=== PATIENT | male | born 2000 | race Caucasian/White ===

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

== ENCOUNTER 2021-07-16 10:44 | Emergency (ER) | payer OTHER, SELFPAY ==
[~2021-07-16] VITALS: Ht 182.9 cm; Wt 67.5 kg
[~2021-07-16 10:44] MED LIST changes: -ATOM40CA; +ATOM40CA16; +CLON-412 PO; -ESCI20TA; +ESCI20TA16
[2021-07-16] MEDS ORDERED: KETOROLAC 30 MG/ML 1ML VIAL IV ONE (12:25)
[2021-07-16 12:47] LABS: BASO % 0.3 % (0.0-1.0); EOS # 0.1 10^3/uL (0.0-0.5); EOS % 0.5 % (0.0-3.0); HEMATOCRIT 44.5 % (42.0-52.0); LYMPH # 1.4 10^3/uL (1.5-5.0); MEAN CORPUSCULAR HEMOGLOBIN 30.3 pg (27.0-33.0); MEAN CORPUSCULAR HGB CONC 33.7 g/dl (32.0-36.5); MEAN CORPUSCULAR VOLUME 89.9 fl (80.0-96.0); MONO # 0.6 10^3/uL (0.0-0.8); MONO % 6.2 % (2.0-8.0); NEUTROPHILS # 7.9 10^3/uL (1.5-8.5); NEUTROPHILS % 78.7 % (36.0-66.0); PLATELET COUNT, AUTOMATED 252 10^3/uL (150-450); RED BLOOD COUNT 4.95 10^6/uL (4.30-6.10)
[2021-07-16 13:01] LABS: ALBUMIN 4.2 GM/DL (3.2-5.2); BILIRUBIN,DIRECT 0.2 MG/DL (0.0-0.2); BILIRUBIN,TOTAL 0.7 MG/DL (0.2-1.0); TOTAL PROTEIN 7.2 GM/DL (6.4-8.2)
[2021-07-16] MEDS ORDERED: FLOM0.4C39 PO (13:48)
[2021-07-16] MEDS ORDERED: KETO10TAB PO (13:48)
[2021-07-16 14:00] VITALS: BP 139/68
[2021-07-16] MEDS ORDERED: NS 1,000 ML IV ONE (14:20)
== END 2021-07-16 14:23 | disposition home or self-care (01) ==
LOC: M ED 10:44
DX: N20.0 Calculus of kidney (principal); F43.10 Post-traumatic stress disorder, unspecified; F90.9 Attention-deficit hyperactivity disorder, unspecified type; Z79.899 Other long term (current) drug therapy
CPT/HCPCS: 36415; 74176; 80047; 80076; 81001; 83690; 85025; 96361; 96374; 99284; J1885

== ENCOUNTER → 2021-08-09 | Outpatient (CLI) | payer OTHER, SELFPAY ==
[~2021-08-09] MED LIST changes: +FLOM0.4C39 PO; +KETO10TAB PO
== END ==
LOC: M LABSMTC 09:17
PROVIDERS: ATTEND Anesthesiology
DX: Z01.812 Encounter for preprocedural laboratory examination (principal); Z20.822 Contact with and (suspected) exposure to COVID-19

== ENCOUNTER → 2021-08-11 | Outpatient (CLI) | payer OTHER, SELFPAY | LOC: M LAB 16:13 | PROVIDERS: ATTEND Urology | DX: N13.2 Hydronephrosis with renal and ureteral calculous obstruction (principal) ==

== ENCOUNTER → 2021-08-13 | Day surgery (SDC) | payer SELFPAY ==
[~2021-08-13] VITALS: Ht 182.9 cm; Wt 67.6 kg
[~2021-08-13] MED LIST changes: +ACETAMINOPHEN 1000MG 100ML IV BTL (OFIRMEV) (J0131 PER 10MG) As Ordered ONE; +CONRAY-60 60% 50ML VIAL (Q9961) As Ordered ONE; +KETOROLAC 60MG 2ML VIAL As Ordered ONE; +LIDOCAINE 2% 100MG/5ML SDV (FOR ANES.) As Ordered ONE; +LR 1,000 ML IV ONE; +LR 1,000 ML IV SCH; +METOCLOPRAMIDE INJ 10MG/2ML VIAL (J2765 PER 1) IV PRN; +MIDAZOLAM INJ 2MG/2ML VIAL (J2250 PER 1MG) As Ordered ONE; +ONDANSETRON 4MG/2ML VIAL As Ordered ONE; +ONDANSETRON 4MG/2ML VIAL IV PRN; +PERCOCET 5MG/325MG TAB PO PRN; +PHENYLephrine 500MCG 5ML (100MCG/ML) SYRINGE As Ordered ONE; +SUCCINYLCHOLINE 100 MG/5 ML SYRINGE (J0330) As Ordered ONE; +ceFAZolin SOD 2 GM in IV 1 EA IV ONE; +dexameTHASONE 4 MG/ML 1ML VIAL (J1100 PER 1MG) As Ordered ONE; +fentaNYL 100 MCG/2 ML INJECTION As Ordered ONE; +fentaNYL 100 MCG/2 ML INJECTION IV PRN; +oxyCODONE 5MG TAB PO PRN; +propofoL 200 MG/20 ML VIAL As Ordered ONE
[2021-08-13 13:45] VITALS: BP 130/77
[2021-08-19 16:08] LABS: CA Oxalate Dihy 50 % (.); Ca Ox Monohydrate 10 % (.); Size 6x4 mm (.)
== END | disposition home or self-care (01) ==
LOC: M SDC 10:08
PROVIDERS: ATTEND Urology
DX: N13.5 Crossing vessel and stricture of ureter without hydronephrosis (principal); F90.9 Attention-deficit hyperactivity disorder, unspecified type; F32.9 Major depressive disorder, single episode, unspecified; F43.10 Post-traumatic stress disorder, unspecified; R06.83 Snoring; Z79.899 Other long term (current) drug therapy
CPT/HCPCS: 52356; 74420; 82365; 88300; C1769; C2617; J0131; J0690; J1100; J1885; J2250; J2370; J2405; J3010; Q9961

== ENCOUNTER 2024-05-08 19:45 | Emergency (ER) | payer OTHER, SELFPAY ==
[~2024-05-08] VITALS: Ht 182.9 cm; Wt 76.2 kg
[~2024-05-08 19:45] MED LIST changes: -ACETAMINOPHEN 1000MG 100ML IV BTL (OFIRMEV) (J0131 PER 10MG) As Ordered ONE; -CONRAY-60 60% 50ML VIAL (Q9961) As Ordered ONE; -KETOROLAC 60MG 2ML VIAL As Ordered ONE; -LIDOCAINE 2% 100MG/5ML SDV (FOR ANES.) As Ordered ONE; -LR 1,000 ML IV ONE; -LR 1,000 ML IV SCH; -METOCLOPRAMIDE INJ 10MG/2ML VIAL (J2765 PER 1) IV PRN; -MIDAZOLAM INJ 2MG/2ML VIAL (J2250 PER 1MG) As Ordered ONE; -ONDANSETRON 4MG/2ML VIAL As Ordered ONE; -ONDANSETRON 4MG/2ML VIAL IV PRN; -PERCOCET 5MG/325MG TAB PO PRN; -PHENYLephrine 500MCG 5ML (100MCG/ML) SYRINGE As Ordered ONE; -SUCCINYLCHOLINE 100 MG/5 ML SYRINGE (J0330) As Ordered ONE; -ceFAZolin SOD 2 GM in IV 1 EA IV ONE; -dexameTHASONE 4 MG/ML 1ML VIAL (J1100 PER 1MG) As Ordered ONE; -fentaNYL 100 MCG/2 ML INJECTION As Ordered ONE; -fentaNYL 100 MCG/2 ML INJECTION IV PRN; -oxyCODONE 5MG TAB PO PRN; -propofoL 200 MG/20 ML VIAL As Ordered ONE
[2024-05-08] MEDS ORDERED: ACET-683 PO (19:59)
[2024-05-08] MEDS: TAMSULOSIN 0.4 MG CAP PO ONE (22:47)
[2024-05-08] MEDS: KETOROLAC TROMETHAMINE 10 MG TAB PO ONE (22:47)
[2024-05-08] MEDS ORDERED: KETO10TAB PO (23:01)
[2024-05-08] MEDS ORDERED: FLOM0.4C39 PO (23:01)
[2024-05-08 23:05] VITALS: BP 129/81; TEMP 98.1; O2SAT 99
== END 2024-05-08 23:10 | disposition home or self-care (01) ==
LOC: EDSEX 19:45 → M ED 19:45
DX: N20.0 Calculus of kidney (principal); F19.10 Other psychoactive substance abuse, uncomplicated; F10.10 Alcohol abuse, uncomplicated; Z79.1 Long term (current) use of non-steroidal anti-inflammatories (NSAID); Z79.2 Long term (current) use of antibiotics; Z79.899 Other long term (current) drug therapy

== ENCOUNTER → 2024-05-31 | Outpatient (REF) | payer OTHER, SELFPAY ==
[~2024-05-31] MED LIST changes: +ACET-683 PO
== END ==
LOC: M SMT 16:58
PROVIDERS: ATTEND Urology
DX: N20.0 Calculus of kidney (principal)

== ENCOUNTER 2024-06-28 21:19 | Emergency (ER) | payer OTHER ==
[~2024-06-28] VITALS: Ht 182.9 cm; Wt 78.3 kg
[2024-06-28 21:43] VITALS: TEMP 98.7
[2024-06-29 00:49] LABS: BASO % 0.2 % (0.0-1.0); HEMATOCRIT 44.4 % (36.0-47.0); HEMOGLOBIN 14.9 g/dl (12.0-15.5); LYMPH # 0.6 10^3/uL (1.5-5.0); LYMPH % 3.9 % (24.0-44.0); MEAN CORPUSCULAR HEMOGLOBIN 30.9 pg (27.0-33.0); MEAN CORPUSCULAR HGB CONC 33.6 g/dl (32.0-36.5); MEAN CORPUSCULAR VOLUME 92.1 fl (80.0-96.0); MONO # 0.8 10^3/uL (0.0-0.8); MONO % 4.8 % (2.0-8.0); NEUTROPHILS # 14.9 10^3/uL (1.5-8.5); NEUTROPHILS % 90.6 % (36.0-66.0); PLATELET COUNT, AUTOMATED 288 10^3/uL (150-450); RED BLOOD COUNT 4.82 10^6/uL (4.00-5.40); WHITE BLOOD COUNT 16.5 10^3/uL (4.0-10.0)
[2024-06-29 01:20] LABS: LIPASE 25 U/L (12-53)
[2024-06-29 01:22] LABS: ALBUMIN 4.7 G/DL (3.2-5.2); ALKALINE PHOSPHATASE 61 U/L (35-104); ALT/SGPT 17 U/L (7.0-40); AST/SGOT 18 U/L (<34); BILIRUBIN,DIRECT 0.3 MG/DL (<0.4); BILIRUBIN,TOTAL 0.9 MG/DL (0.3-1.2); BLOOD UREA NITROGEN 15 MG/DL (9-23); CALCIUM LEVEL 9.9 MG/DL (8.5-10.1); CARBON DIOXIDE LEVEL 26 MMOL/L (20-31); CHLORIDE LEVEL 106 MMOL/L (98-107); CREATININE FOR GFR 0.93 MG/DL (0.55-1.30); GLOMERULAR FILTRATION RATE > 60.0 (>60); GLUCOSE, FASTING 124 MG/DL (60-100); SODIUM LEVEL 142 MMOL/L (136-145); TOTAL PROTEIN 7.9 G/DL (5.7-8.2)
[2024-06-29] MEDS: KETOROLAC 30 MG/ML 1ML VIAL IV ONE (01:37)
[2024-06-29] MEDS ORDERED: FLOM0.4C39 PO (02:35)
[2024-06-29] MEDS ORDERED: KETO10TAB PO (02:35)
[2024-06-29 02:42] VITALS: BP 143/88
[2024-06-29 02:46] VITALS: O2SAT 99
[2024-06-29] MEDS: traMADol 50 MG TAB PO ONE (02:46)
[2024-06-29] MEDS: TAMSULOSIN 0.4 MG CAP PO ONE (02:46)
[2024-06-29] MEDS: traMADol 50 MG TAB (HOME DOSE PACK) PO ONE (02:56)
[2024-07-23] MEDS ORDERED: ESTR1TAB PO (08:07)
[2024-07-23] MEDS ORDERED: SPIR100T3 PO (08:07)
[2024-07-23] MEDS ORDERED: LEXA1TAB PO (08:07)
[2024-07-23] MEDS ORDERED: PROG1CAP8 PO (08:07)
[2024-07-23] MEDS ORDERED: TAMS1CAP17 PO (08:07)
== END 2024-06-29 03:00 | disposition home or self-care (01) ==
LOC: M ED 21:19
DX: N20.1 Calculus of ureter (principal); F43.10 Post-traumatic stress disorder, unspecified; F90.9 Attention-deficit hyperactivity disorder, unspecified type; Z79.1 Long term (current) use of non-steroidal anti-inflammatories (NSAID); Z79.2 Long term (current) use of antibiotics
CPT/HCPCS: 74176; 80047; 80048; 80076; 83690; 85025; 96374; 99284; J1885

== ENCOUNTER → 2024-07-28 | Outpatient (CLI) | payer OTHER ==
[~2024-07-28] MED LIST changes: +ESTR1TAB PO; +LEXA1TAB PO; +PROG1CAP8 PO; +SPIR100T3 PO; +TAMS1CAP17 PO
[2024-07-28 15:01] LABS: HEMATOCRIT 43.8 % (36.0-47.0); HEMOGLOBIN 14.3 g/dl (12.0-15.5); MEAN CORPUSCULAR HGB CONC 32.6 g/dl (32.0-36.5); MEAN CORPUSCULAR VOLUME 91.8 fl (80.0-96.0); PLATELET COUNT, AUTOMATED 247 10^3/uL (150-450); RED BLOOD COUNT 4.77 10^6/uL (4.00-5.40)
[2024-07-28 15:38] LABS: ALBUMIN 4.3 G/DL (3.2-5.2); ALKALINE PHOSPHATASE 61 U/L (35-104); ALT/SGPT 14 U/L (7.0-40); AST/SGOT 14 U/L (<34); BILIRUBIN,TOTAL 1.1 MG/DL (0.3-1.2); BLOOD UREA NITROGEN 10 MG/DL (9-23); CARBON DIOXIDE LEVEL 31 MMOL/L (20-31); CHLORIDE LEVEL 106 MMOL/L (98-107); CREATININE FOR GFR 0.71 MG/DL (0.55-1.30); GLOMERULAR FILTRATION RATE > 60.0 (>60); GLUCOSE, FASTING 85 MG/DL (60-100); POTASSIUM SERUM 4.1 MMOL/L (3.5-5.1); SODIUM LEVEL 144 MMOL/L (136-145); TOTAL PROTEIN 7.3 G/DL (5.7-8.2)
== END ==
LOC: M LAB 14:35
PROVIDERS: ATTEND Urology
DX: N20.0 Calculus of kidney (principal)

== ENCOUNTER 2024-08-01 08:53 | Day surgery (SDC) | payer OTHER ==
[~2024-08-01] VITALS: Ht 182.9 cm; Wt 76.0 kg
[2024-08-01] MEDS ORDERED: NS (Normal Saline) 0.9% 1,000 ML IV SCH (09:25)
[2024-08-01] MEDS ORDERED: ACETAMINOPHEN 1000MG/100ML IV BAG As Ordered ONE (09:42)
[2024-08-01] MEDS ORDERED: MIDAZOLAM INJ 2MG/2ML VIAL As Ordered ONE (09:42)
[2024-08-01] MEDS ORDERED: propofoL 200 MG/20 ML VIAL As Ordered ONE (09:42)
[2024-08-01] MEDS ORDERED: LIDOCAINE 2% 100MG/5ML SDV (FOR ANES.) As Ordered ONE (09:42)
[2024-08-01] MEDS: ceFAZolin SOD 2 GM in IV 1 EA IV ONE (10:49)
[2024-08-01] MEDS: ISOVUE-300 61% 100ML VIAL As Ordered ONE (10:49)
[2024-08-01] MEDS ORDERED: HYDR-3713 PO (10:49)
[2024-08-01 12:35] VITALS: BP 136/86; TEMP 97.4; O2SAT 98
== END 2024-08-01 12:48 | disposition home or self-care (01) ==
LOC: M SDC 08:53
PROVIDERS: ATTEND Urology
DX: N20.1 Calculus of ureter (principal); F43.10 Post-traumatic stress disorder, unspecified; Z87.442 Personal history of urinary calculi; Z79.899 Other long term (current) drug therapy
CPT/HCPCS: 50590; 74018; 81025; J0131; J0690; J2250; Q9967

== ENCOUNTER → 2024-08-21 | Outpatient (CLI) | payer OTHER ==
[~2024-08-21] MED LIST changes: +HYDR-3713 PO
== END ==
LOC: M RAD 14:51
PROVIDERS: ATTEND Urology
DX: Z98.890 Other specified postprocedural states (principal)

== ENCOUNTER → 2025-04-19 | Outpatient (CLI) | payer OTHER ==
[~2025-04-19] MED LIST changes: -FLOM0.4C39 PO; +TAMS-18 PO
== END ==
LOC: M RAD 12:48
PROVIDERS: ATTEND Nurse Practitioner Family
DX: N20.0 Calculus of kidney (principal)